=== PATIENT | male | born 1995 | race Caucasian/White ===

== ENCOUNTER 2016-08-20 14:50 | Inpatient (IN) | payer MEDICARE, MEDICAID ==
[2016-08-20] MEDS ORDERED: Sodium Chloride 0.9% 1,000 ML IV ONE (15:46)
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
[2016-08-20 16:07] LABS: % BASOPHILS 0.4 % (0.0-2.0); % EOSINOPHILS 1.8 % (0.0-5.0); % NEUTROPHILS 66.8 % (40.0-80.0); HEMATOCRIT 40.9 % (39.0-49.0); HEMOGLOBIN 13.8 gm/dL (13.2-17.3); MEAN CELL VOLUME 87.8 fl (80-99); MEAN CORPUSCULAR HEMOGLOBIN 29.6 pg (26.0-30.0); MEAN CORPUSCULAR HGB CONC 33.7 pg (28.0-36.0); MEAN PLATELET VOLUME 7.3 fl; NEUTROPHILE ABSOLUTE 6.6 Th/cmm (1.8-8.0); PLATELET COUNT 221 Th/cmm (150-400); RED BLOOD COUNT 4.66 Mil/cmm (4.30-5.70); RED CELL DISTRIBUTION WIDTH 13.6 % (11.5-20.0); WHITE BLOOD COUNT 9.9 Th/cmm (4.8-10.8)
[2016-08-20 16:36] LABS: ANION GAP 11.4 (7.0-16.0); BUN - UREA NITROGEN 13 mg/dL (7-25); BUN/CREATININE RATIO 18.6; CALCIUM SERUM 9.4 mg/dL (8.6-10.3); CARBON DIOXIDE 25.6 mEq/L (21.0-31.0); CHLORIDE 106 mEq/L (98-107); CREATININE - SERUM 0.7 mg/dL (0.7-1.3); GLUCOSE 131 mg/dL (70-105); SODIUM SERUM 139 mEq/L (136-145)
[2016-08-20] MEDS ORDERED: Pneumococcal Vaccine 0.5 mL Vial IM ONE (20:25)
[2016-08-20] MEDS ORDERED: Albuterol Nebulizer 2.5mg/3mL HHN PRN (20:53)
[2016-08-20] MEDS ORDERED: Magnesium Hydroxide (MOM) 30 mL UDC PO PRN (20:53)
[2016-08-20] MEDS ORDERED: LURASIDONE HCL PO SCH (21:00)
[2016-08-20] MEDS: Levofloxacin 500mg/100mL 500 MG/100 ML BAG IV SCH (22:07)
[2016-08-20] MEDS: D5-0.9%NS 1,000 ML IV SCH (22:10)
--- NOTE | 2016-08-21 06:37 | Admit Criteria Form ---
Admit Criteria Forms - Admit Criteria Diagnosis: CELLULITIS Clinical Indications for Admission to Inpatient Care (Place 'X' for any and all applicable criteria): Admission is indicated for ANY ONE of the following(1)(2)(3)(4)(5): [ ]I. Limb-threatening infection [ ]II. High-risk comorbid condition as indicated by ANY ONE of the following: [ ]a) Uncontrolled diabetes (eg, HbA1c greater than 10% (0.1)) [ ]b) Cirrhosis [ ]c) Neutropenia [ ]d) Asplenia [ ]e) Immunosuppression [ ]f) Symptomatic heart failure [ ]III. Failure of outpatient therapy as indicated by ALL of the following: [ ]a) Progression or no improvement after adequate trial (minimum of 48 hours, with longer period for stable lower extremity infection) [ ]b) Adequate antibiotic regimen as indicated by use of ANY ONE of the following: [ ]i) First-generation cephalosporin (e.g., cephalexin) [ ]ii) Antistaphylococcal penicillin (e.g., dicloxacillin) [ ]iii) Penicillin-allergic patient regimen (clindamycin, extended-spectrum fluoroquinolone, or doxycycline) [ ]iv) Resistant organism (eg, methicillin-resistant Staphylococcus aureus) regimen (6) [ ]c) Outpatient intravenous therapy regimen is not appropriate due to ANY ONE of the following. (7)(8)(9)(10): [ ]i) It was tried and was not successful (eg, progression of infection). [ ]ii) It is not available or cannot be arranged in a clinically appropriate time frame (e.g., the next day). [ ]iii) Clinical presentation (eg, acuity of infection, rapidity of progression, confirmed or suspected bacteremia) is judged to require ALL of the following: [ ]1) Immediate initiation of intravenous therapy ( eg, cannot wait for next day) [ ]2) Intensity of patient monitoring and observation (eg, vital sign measurement, checks for infection progression) that cannot be provided at other than inpatient level of care [ ]IV. Mental status changes [ ]V. Bacteremia [ ]. Hemodynamic instability [ ]VII. Suspected necrotizing soft tissue infection (e.g., gas in tissue)(11)( 12) [ ]VIII. Orbital infection (13)(14) [ ]IX. Associated surgical procedure (e.g., abscess drainage, debridement) not amenable to outpatient, emergency department, or observation care [ ]X. Cutaneous gangrene [ ]XI. High fever (temperature greater than 39.5 degrees C (103.1 degrees F) (oral)) not responsive to outpatient, emergency department, or observation care therapy [X ]XIII. Inpatient admission required rather than observation care (Also use Cellulitis: Observation Care as appropriate) because of ANY ONE of the following : [X ]a) Periorbital or perineal infection that is severe or worsening [ ]b) Severe pain requiring acute inpatient management [ ]c) IV fluid to replace significant ongoing (e.g., for over 24 hours) losses (greater than 3L/m2 per day) [ ]d) Compartment syndrome monitoring (17) [ ]e) Strict or protective (eg, laminar flow) isolation [ ]f) Urgent debridement or skin grafting [ ]g) Bone or joint debridement [ ]h) Immediate inpatient surgery [X ]i) Other condition, treatment or monitoring requiring inpatient admission Extended stay beyond goal length of stay may be needed for (1)(18): [ ]a) Necrotizing soft tissue infection or fasciitis [ ]b) Gram-negative infection [ ]c) Methicillin-resistant Staphylococcal aureus (MRSA) infection [ ]d) Peripheral venous insufficiency with cellulitis [ ]e) Extensive edema [ ]f) Sepsis or continued Hemodynamic instability [ ]g) Continued high fever or mental status change [ ]h) Bacteremia [ ]i) Active serious comorbid conditions ( eg, heart failure, renal insufficiency) The original [facility] [employer] content created by [facility] [employer] has been revised. The portions of the content which have been revised are identified through the use of italic text or in bold, and [facility] has neither reviewed nor approved the modified material. All other unmodified content is copyright [facility] Please see references footnoted in the original [facility] edition 2016 Admit Criteria Met?: Yes
[2016-08-21] MEDS: Maalox 30 mL Cup PO SCH ×3 (09:17→17:20)
[2016-08-21] MEDS: Bacitracin Zinc/Polymyxin B Oint 15 gm Tube TP SCH ×2 (09:17→17:19)
[2016-08-21] MEDS ORDERED: VTE Chemical Prophylaxis Screen/Admission MC PRN (11:52)
--- NOTE | 2016-08-21 16:35 | Internal Medicine Prog Note ---
Internal Medicine Subjective - Subjective Service Date: 08/21/16 ([id number] hn ) Internal Medicine Objective - Results Result Diagrams: 08/20/16 15:55 08/20/16 15:55 Recent Labs: Laboratory Last Values WBC 9.9 Th/cmm (4.8-10.8) 08/20/16 15:55 RBC 4.66 Mil/cmm (4.30-5.70) 08/20/16 15:55 Hgb 13.8 gm/dL (13.2-17.3) 08/20/16 15:55 Hct 40.9 % (39.0-49.0) 08/20/16 15:55 MCV 87.8 fl (80-99) 08/20/16 15:55 MCH 29.6 pg (26.0-30.0) 08/20/16 15:55 MCHC Differential 33.7 pg (28.0-36.0) 08/20/16 15:55 RDW 13.6 % (11.5-20.0) 08/20/16 15:55 Plt Count 221 Th/cmm (150-400) 08/20/16 15:55 MPV 7.3 fl 08/20/16 15:55 Neutrophils % 66.8 % (40.0-80.0) 08/20/16 15:55 Lymphocytes % 23.0 % (20.0-50.0) 08/20/16 15:55 Monocytes % 8.0 % (2.0-10.0) 08/20/16 15:55 Eosinophils % 1.8 % (0.0-5.0) 08/20/16 15:55 Basophils % 0.4 % (0.0-2.0) 08/20/16 15:55 Sodium 139 mEq/L (136-145) 08/20/16 15:55 Potassium 4.0 mEq/L (3.5-5.1) 08/20/16 15:55 Chloride 106 mEq/L (98-107) 08/20/16 15:55 Carbon Dioxide 25.6 mEq/L (21.0-31.0) 08/20/16 15:55 Anion Gap 11.4 (7.0-16.0) 08/20/16 15:55 BUN 13 mg/dL (7-25) 08/20/16 15:55 Creatinine 0.7 mg/dL (0.7-1.3) 08/20/16 15:55 Est GFR ( Amer) > 60.0 ml/min (>90) 08/20/16 15:55 Est GFR (Non-Af Amer) > 60.0 ml/min 08/20/16 15:55 BUN/Creatinine Ratio 18.6 08/20/16 15:55 Glucose 131 mg/dL (70-105) H 08/20/16 15:55 Calcium 9.4 mg/dL (8.6-10.3) 08/20/16 15:55 - Physical Exam Vitals and I&O: Vital Signs Temp 98.2 F 08/21/16 12:00 Pulse 80 08/21/16 12:00 Resp 17 08/21/16 12:00 BP 125/66 08/21/16 12:00 Pulse Ox 100 08/21/16 12:00 Intake & Output 08/20/16 08/21/16 08/21/16 18:59 06:59 18:59 Intake Total 250 Balance 250 Intake: Intake, IV Amount 250 Vancomycin HCl 1 gm In 250 Sodium Chloride 0.9% 250 ml @ 165 mls/hr IV 0100, 0900,1700 [facility] Rx#: [id number] Active Medications: Current Medications Acetaminophen (Tylenol) 650 mg PO Q4HR PRN PRN Reason: PAIN (MODERATE TO SEVERE) Stop: 10/19/16 20:52 Al Hydrox/Mg Hydrox/Simethicone (Maalox) 30 ml PO Q4H [facility] Stop: 10/19/16 20:59 Last Admin: 08/21/16 14:19 Dose: Not Given Albuterol Sulfate (Albuterol 2.5mg/3ml Neb Ud) 2.5 mg HHN Q4HR PRN PRN Reason: ASTHMA Stop: 10/19/16 20:52 Bacitracin/Polymyxin B Sulfate (Polysporin) 1 appl TP BID [facility] Stop: 10/20/16 08:59 Last Admin: 08/21/16 09:17 Dose: 1 appl Clindamycin HCl (Cleocin Hcl) 300 mg PO QID [facility] Stop: 10/19/16 20:59 Last Admin: 08/21/16 12:16 Dose: 300 mg Diphenhydramine HCl (Benadryl) 50 mg PO Q6H PRN PRN Reason: Itching Stop: 10/19/16 20:52 Escitalopram Oxalate (Lexapro) 10 mg PO DAILY [facility] PRN Reason: Protocol Stop: 10/20/16 08:59 Last Admin: 08/21/16 15:05 Dose: Not Given Heparin Sodium (Porcine) (Heparin) 5,000 units SUBQ Q12H [facility] Stop: 10/20/16 20:59 Dextrose/Sodium Chloride (D5-0.9%Ns) 1,000 mls @ 100 mls/hr IV .Q10H [facility] Stop: 10/19/16 20:59 Last Admin: 08/20/16 22:10 Dose: 100 mls/hr Levofloxacin (Levaquin Pb) 500 mg in 100 mls @ 100 mls/hr IV Q24HR [facility] Stop: 10/19/16 21:14 Last Admin: 08/20/16 22:07 Dose: 100 mls/hr Vancomycin HCl 1 gm/ Sodium (Chloride) 250 mls @ 165 mls/hr IV 0100,0900,1700 [facility] Stop: 10/20/16 00:59 Last Admin: 08/21/16 09:44 Dose: 165 mls/hr Ibuprofen (Motrin) 800 mg PO Q6HR PRN PRN Reason: Pain (Moderate) Stop: 10/19/16 20:52 Last Admin: 08/21/16 00:00 Dose: 800 mg Lorazepam (Ativan) 1 mg PO Q6H PRN; Protocol PRN Reason: Anxiety Stop: 10/19/16 20:52 Magnesium Hydroxide (Milk Of Magnesia) 30 ml PO DAILY PRN PRN Reason: Constipation Stop: 10/19/16 20:52 Miscellaneous (Vancomycin Iv Per Pharmacy) 1 ea MC PRN [facility] Stop: 10/19/16 20:59 Miscellaneous (Vte Chemical Prophylaxis Screen/ Admission) 1 ea MC PRN PRN PRN Reason: PROTOCOL Stop: 10/20/16 11:51 Ondansetron HCl (Zofran Odt) 4 mg PO Q6H PRN PRN Reason: Nausea / Vomiting Stop: 10/19/16 22:44 Ondansetron HCl (Zofran) 4 mg IV Q8H PRN PRN Reason: Nausea / Vomiting Stop: 10/19/16 20:59 Quetiapine Fumarate (Seroquel) 50 mg PO HS [facility] PRN Reason: Protocol Stop: 10/19/16 20:59 Tramadol HCl (Ultram) 50 mg PO Q6H PRN PRN Reason: Pain (Moderate) Stop: 10/19/16 20:52 Trazodone HCl (Desyrel) 50 mg PO HS PRN; Protocol PRN Reason: Insomnia Stop: 10/19/16 20:52 Internal Medicine Assmt/Plan - Assessment Assessment: PERIORBITAL CELLULITIS SEIZURES HEPATITIS C
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
[2016-08-21] MEDS: Levofloxacin 500mg/100mL 500 MG/100 ML BAG IV SCH (21:39)
--- NOTE | 2016-08-21 22:12 | Consultation ---
The patient was seen, chart reviewed, and discussed with staff. HISTORY OF PRESENT ILLNESS: The patient is a 21-year-old male with history of depression, possible bipolar disorder, known to myself from treatment at [facility]. He developed cellulitis over the face. He was transferred to medical floor now. He is receiving IV antibiotic treatment. The patient is still feeling depressed, anxious, and continues to have some episodes where he has hopelessness and thoughts of harming himself, but he feels comfortable now on medical floor. He has been accepting treatment on the voluntary basis. PAST PSYCHIATRIC HISTORY: Prior hospitalizations and history of depression and anxiety. PSYCHOSOCIAL HISTORY: The patient is currently homeless. SUBSTANCE ABUSE HISTORY: The patient has a history of substance abuse in the past. MENTAL STATUS EXAMINATION: The patient was cooperative, makes fair eye contact. Speech is fluent, not pressured. His thought process is logical in general. He occasionally becomes tangential, slightly guarded, but no other visual hallucinations. He is oriented to time, place, and person. ASSESSMENT: Bipolar disorder, depressed. PLAN: We will continue supportive measure, continue to monitor closely. Continue medication management. The patient will be transferred back to [facility] once medically cleared. Thank you for the consultation. JOB# [id number]
[2016-08-22] MEDS: Bacitracin Zinc/Polymyxin B Oint 15 gm Tube TP SCH ×2 (08:43→16:22)
[2016-08-22] MEDS: Maalox 30 mL Cup PO SCH ×4 (08:43→20:53)
--- NOTE | 2016-08-22 09:10 | Diagnostic Imaging Report ---
CT scan of the brain without contrast History: Headache Total DLP equals 562 CTDI equals 33.6 Axial sections were obtained from the base of the skull to the vertex. Mild asymmetric increased density with soft tissue swelling noted in the right perinasal/periorbital region. There is a normal ventricular system size. No focal parenchymal lesions are seen. No evidence of any mass effect or shift of midline structures. No extra-axial masses or abnormal fluid collections. Impression: 1. No acute intracerebral abnormalities 2. Suggestion of mild soft tissue swelling within the right paranasal/periorbital region.
--- NOTE | 2016-08-22 09:12 | Diagnostic Imaging Report ---
CT scan sinuses HISTORY: Pain Total DLP equals 112 CTDI equals 8.3 Axial sections were obtained through the paranasal sinuses. Additional coronal and sagittal reformatted images are provided. The exam demonstrates mild mucosal thickening within the lower portion of the right maxillary sinus. Retention of normal bony margins. The left maxillary sinus exhibits normal aeration with no abnormal soft tissue densities or fluid levels. The ostiomeatal complex units appear normal bilaterally. There is normal aeration of the ethmoid, frontal, sphenoid sinuses. Nasal turbinates appear normal. There is protrusion of an upper tooth into the lower lumen of the right maxillary sinus. Mild protrusion of an upper tooth noted into the lower portion of the left maxillary sinus. IMPRESSION: 1. Mild mucosal thickening within the right maxillary sinus 2. Protrusion upper teeth into the right and to a lesser degree left maxillary sinus regions.
--- NOTE | 2016-08-22 09:30 | Internal Medicine Prog Note ---
Internal Medicine Subjective - Subjective Service Date: 08/22/16 (patient awake, alert, very agitated, assessed patients right eye and asked him to cover left eye, i held up blue gloves and asked what color it was patient was able distinguish the colors.) Patient seen and examined:: with staff Patient is:: awake Per staff patient is:: no adverse event Internal Medicine Objective - Results Result Diagrams: 08/20/16 15:55 08/20/16 15:55 Recent Labs: Laboratory Last Values WBC 9.9 Th/cmm (4.8-10.8) 08/20/16 15:55 RBC 4.66 Mil/cmm (4.30-5.70) 08/20/16 15:55 Hgb 13.8 gm/dL (13.2-17.3) 08/20/16 15:55 Hct 40.9 % (39.0-49.0) 08/20/16 15:55 MCV 87.8 fl (80-99) 08/20/16 15:55 MCH 29.6 pg (26.0-30.0) 08/20/16 15:55 MCHC Differential 33.7 pg (28.0-36.0) 08/20/16 15:55 RDW 13.6 % (11.5-20.0) 08/20/16 15:55 Plt Count 221 Th/cmm (150-400) 08/20/16 15:55 MPV 7.3 fl 08/20/16 15:55 Neutrophils % 66.8 % (40.0-80.0) 08/20/16 15:55 Lymphocytes % 23.0 % (20.0-50.0) 08/20/16 15:55 Monocytes % 8.0 % (2.0-10.0) 08/20/16 15:55 Eosinophils % 1.8 % (0.0-5.0) 08/20/16 15:55 Basophils % 0.4 % (0.0-2.0) 08/20/16 15:55 Sodium 139 mEq/L (136-145) 08/20/16 15:55 Potassium 4.0 mEq/L (3.5-5.1) 08/20/16 15:55 Chloride 106 mEq/L (98-107) 08/20/16 15:55 Carbon Dioxide 25.6 mEq/L (21.0-31.0) 08/20/16 15:55 Anion Gap 11.4 (7.0-16.0) 08/20/16 15:55 BUN 13 mg/dL (7-25) 08/20/16 15:55 Creatinine 0.7 mg/dL (0.7-1.3) 08/20/16 15:55 Est GFR ( Amer) > 60.0 ml/min (>90) 08/20/16 15:55 Est GFR (Non-Af Amer) > 60.0 ml/min 08/20/16 15:55 BUN/Creatinine Ratio 18.6 08/20/16 15:55 Glucose 131 mg/dL (70-105) H 08/20/16 15:55 Calcium 9.4 mg/dL (8.6-10.3) 08/20/16 15:55 - Physical Exam Vitals and I&O: Vital Signs Temp 98.6 F 08/22/16 08:27 Pulse 53 08/22/16 08:27 Resp 18 08/22/16 08:27 BP 115/69 08/22/16 08:27 Pulse Ox 97 08/22/16 08:27 Intake & Output 08/21/16 08/22/16 08/22/16 18:59 06:59 18:59 Intake Total 500 320 Balance 500 320 Intake: Intake, IV Amount 500 Vancomycin HCl 1 gm In 500 Sodium Chloride 0.9% 250 ml @ 165 mls/hr IV 0100, 0900,1700 [facility] Rx#: [id number] Oral 320 Other: # Voids 2 # Bowel Movements 0 Active Medications: Current Medications Acetaminophen (Tylenol) 650 mg PO Q4HR PRN PRN Reason: PAIN (MODERATE TO SEVERE) Stop: 10/19/16 20:52 Al Hydrox/Mg Hydrox/Simethicone (Maalox) 30 ml PO Q4H [facility] Stop: 10/19/16 20:59 Last Admin: 08/22/16 08:43 Dose: Not Given Albuterol Sulfate (Albuterol 2.5mg/3ml Neb Ud) 2.5 mg HHN Q4HR PRN PRN Reason: ASTHMA Stop: 10/19/16 20:52 Bacitracin/Polymyxin B Sulfate (Polysporin) 1 appl TP BID [facility] Stop: 10/20/16 08:59 Last Admin: 08/22/16 08:43 Dose: 1 appl Clindamycin HCl (Cleocin Hcl) 300 mg PO QID [facility] Stop: 10/19/16 20:59 Last Admin: 08/22/16 08:35 Dose: 300 mg Diphenhydramine HCl (Benadryl) 50 mg PO Q6H PRN PRN Reason: Itching Stop: 10/19/16 20:52 Escitalopram Oxalate (Lexapro) 10 mg PO DAILY [facility] PRN Reason: Protocol Stop: 10/20/16 08:59 Last Admin: 08/22/16 08:36 Dose: Not Given Heparin Sodium (Porcine) (Heparin) 5,000 units SUBQ Q12H [facility] Stop: 10/20/16 20:59 Last Admin: 08/22/16 08:35 Dose: 5,000 units Dextrose/Sodium Chloride (D5-0.9%Ns) 1,000 mls @ 100 mls/hr IV .Q10H [facility] Stop: 10/19/16 20:59 Last Admin: 08/20/16 22:10 Dose: 100 mls/hr Levofloxacin (Levaquin Pb) 500 mg in 100 mls @ 100 mls/hr IV Q24HR [facility] Stop: 10/19/16 21:14 Last Admin: 08/21/16 21:39 Dose: 100 mls/hr Vancomycin HCl 1 gm/ Sodium (Chloride) 250 mls @ 165 mls/hr IV 0100,0900,1700 [facility] Stop: 10/20/16 00:59 Last Admin: 08/22/16 02:04 Dose: 165 mls/hr Ibuprofen (Motrin) 800 mg PO Q6HR PRN PRN Reason: Pain (Moderate) Stop: 10/19/16 20:52 Last Admin: 08/21/16 23:14 Dose: 800 mg Lorazepam (Ativan) 1 mg PO Q6H PRN; Protocol PRN Reason: Anxiety Stop: 10/19/16 20:52 Magnesium Hydroxide (Milk Of Magnesia) 30 ml PO DAILY PRN PRN Reason: Constipation Stop: 10/19/16 20:52 Miscellaneous (Vancomycin Iv Per Pharmacy) 1 ea MC PRN [facility] Stop: 10/19/16 20:59 Miscellaneous (Vte Chemical Prophylaxis Screen/ Admission) 1 ea MC PRN PRN PRN Reason: PROTOCOL Stop: 10/20/16 11:51 Ondansetron HCl (Zofran Odt) 4 mg PO Q6H PRN PRN Reason: Nausea / Vomiting Stop: 10/19/16 22:44 Ondansetron HCl (Zofran) 4 mg IV Q8H PRN PRN Reason: Nausea / Vomiting Stop: 10/19/16 20:59 Quetiapine Fumarate (Seroquel) 50 mg PO HS [facility] PRN Reason: Protocol Stop: 10/19/16 20:59 Last Admin: 08/21/16 21:15 Dose: 50 mg Tramadol HCl (Ultram) 50 mg PO Q6H PRN PRN Reason: Pain (Moderate) Stop: 10/19/16 20:52 Trazodone HCl (Desyrel) 50 mg PO HS PRN; Protocol PRN Reason: Insomnia Stop: 10/19/16 20:52 General: alert HEENT: NC/AT, PERRLA Neck: Supple Lungs: CTAB Cardiovascular: RRR, Normal S1, Normal S2, without murmur Abdomen: soft non-tender, non-distended Extremities: clear Internal Medicine Assmt/Plan - Assessment Assessment: PERIORBITAL CELLULITIS SEIZURES HEPATITIS C - Plan Plan: continue iv antibiotics neuro consult f/u labs cpm
[2016-08-22 09:56] LABS: % BASOPHILS 0.5 % (0.0-2.0); % EOSINOPHILS 2.7 % (0.0-5.0); % LYMPHOCYTES 39.3 % (20.0-50.0); % MONOCYTES 6.4 % (2.0-10.0); % NEUTROPHILS 51.1 % (40.0-80.0); HEMATOCRIT 44.2 % (39.0-49.0); HEMOGLOBIN 14.5 gm/dL (13.2-17.3); MEAN CELL VOLUME 89.2 fl (80-99); MEAN CORPUSCULAR HEMOGLOBIN 29.3 pg (26.0-30.0); MEAN CORPUSCULAR HGB CONC 32.9 pg (28.0-36.0); MEAN PLATELET VOLUME 7.1 fl; NEUTROPHILE ABSOLUTE 2.1 Th/cmm (1.8-8.0); PLATELET COUNT 218 Th/cmm (150-400); RED BLOOD COUNT 4.95 Mil/cmm (4.30-5.70); RED CELL DISTRIBUTION WIDTH 13.6 % (11.5-20.0)
[2016-08-22 10:04] LABS: WHITE BLOOD COUNT 4.1 Th/cmm (4.8-10.8)
[2016-08-22 10:30] LABS: ALB/GLOB RATIO 1.5 (1.0-1.8); ALKALINE PHOSPHATASE 54 U/L (34-104); ANION GAP 7.8 (7.0-16.0); BILIRUBIN,TOTAL 0.3 mg/dL (0.3-1.0); BUN - UREA NITROGEN 12 mg/dL (7-25); CALCIUM SERUM 9.7 mg/dL (8.6-10.3); CARBON DIOXIDE 28.1 mEq/L (21.0-31.0); CHLORIDE 104 mEq/L (98-107); CREATININE - SERUM 0.8 mg/dL (0.7-1.3); GLUCOSE 99 mg/dL (70-105); POTASSIUM SERUM 3.9 mEq/L (3.5-5.1); SGOT 16 U/L (13-39); SGPT/ALT 15 U/L (7-52); SODIUM SERUM 136 mEq/L (136-145)
[2016-08-22] MEDS: D5-0.9%NS 1,000 ML IV SCH (13:42)
[2016-08-23] MEDS: Maalox 30 mL Cup PO SCH ×6 (00:44→21:19)
[2016-08-23] MEDS: Bacitracin Zinc/Polymyxin B Oint 15 gm Tube TP SCH ×2 (08:49→16:21)
[2016-08-23 10:46] LABS: % BASOPHILS 0.3 % (0.0-2.0); % EOSINOPHILS 2.3 % (0.0-5.0); % MONOCYTES 7.9 % (2.0-10.0); % NEUTROPHILS 46.5 % (40.0-80.0); HEMATOCRIT 43.7 % (39.0-49.0); HEMOGLOBIN 14.6 gm/dL (13.2-17.3); MEAN CELL VOLUME 87.5 fl (80-99); MEAN CORPUSCULAR HEMOGLOBIN 29.3 pg (26.0-30.0); MEAN CORPUSCULAR HGB CONC 33.5 pg (28.0-36.0); NEUTROPHILE ABSOLUTE 2.2 Th/cmm (1.8-8.0); PLATELET COUNT 256 Th/cmm (150-400); RED BLOOD COUNT 4.99 Mil/cmm (4.30-5.70); RED CELL DISTRIBUTION WIDTH 13.5 % (11.5-20.0); WHITE BLOOD COUNT 4.8 Th/cmm (4.8-10.8)
[2016-08-23 10:59] LABS: ANION GAP 5.5 (7.0-16.0); BUN - UREA NITROGEN 15 mg/dL (7-25); BUN/CREATININE RATIO 21.4; CALCIUM SERUM 9.5 mg/dL (8.6-10.3); CARBON DIOXIDE 29.9 mEq/L (21.0-31.0); CHLORIDE 106 mEq/L (98-107); CREATININE - SERUM 0.7 mg/dL (0.7-1.3); GLUCOSE 95 mg/dL (70-105); POTASSIUM SERUM 4.4 mEq/L (3.5-5.1); SODIUM SERUM 137 mEq/L (136-145)
--- NOTE | 2016-08-23 14:23 | Internal Medicine Prog Note ---
Internal Medicine Subjective - Subjective Service Date: 08/23/16 Patient seen and examined:: with staff Patient is:: awake Per staff patient is:: no adverse event Internal Medicine Objective - Results Result Diagrams: 08/23/16 10:30 08/23/16 10:30 Recent Labs: Laboratory Last Values WBC 4.8 Th/cmm (4.8-10.8) 08/23/16 10:30 RBC 4.99 Mil/cmm (4.30-5.70) 08/23/16 10:30 Hgb 14.6 gm/dL (13.2-17.3) 08/23/16 10:30 Hct 43.7 % (39.0-49.0) 08/23/16 10:30 MCV 87.5 fl (80-99) 08/23/16 10:30 MCH 29.3 pg (26.0-30.0) 08/23/16 10:30 MCHC Differential 33.5 pg (28.0-36.0) 08/23/16 10:30 RDW 13.5 % (11.5-20.0) 08/23/16 10:30 Plt Count 256 Th/cmm (150-400) 08/23/16 10:30 MPV 7.0 fl 08/23/16 10:30 Neutrophils % 46.5 % (40.0-80.0) 08/23/16 10:30 Lymphocytes % 43.0 % (20.0-50.0) 08/23/16 10:30 Monocytes % 7.9 % (2.0-10.0) 08/23/16 10:30 Eosinophils % 2.3 % (0.0-5.0) 08/23/16 10:30 Basophils % 0.3 % (0.0-2.0) 08/23/16 10:30 ESR 7 mm/hr (0-20) 08/22/16 09:45 Sodium 137 mEq/L (136-145) 08/23/16 10:30 Potassium 4.4 mEq/L (3.5-5.1) 08/23/16 10:30 Chloride 106 mEq/L (98-107) 08/23/16 10:30 Carbon Dioxide 29.9 mEq/L (21.0-31.0) 08/23/16 10:30 Anion Gap 5.5 (7.0-16.0) L 08/23/16 10:30 BUN 15 mg/dL (7-25) 08/23/16 10:30 Creatinine 0.7 mg/dL (0.7-1.3) 08/23/16 10:30 Est GFR ( Amer) > 60.0 ml/min (>90) 08/23/16 10:30 Est GFR (Non-Af Amer) > 60.0 ml/min 08/23/16 10:30 BUN/Creatinine Ratio 21.4 08/23/16 10:30 Glucose 95 mg/dL (70-105) 08/23/16 10:30 Calcium 9.5 mg/dL (8.6-10.3) 08/23/16 10:30 Total Bilirubin 0.3 mg/dL (0.3-1.0) 08/22/16 09:45 AST 16 U/L (13-39) 08/22/16 09:45 ALT 15 U/L (7-52) 08/22/16 09:45 Alkaline Phosphatase 54 U/L (34-104) 08/22/16 09:45 C-Reactive Protein 1.0 mg/dL (0.0-0.9) H 08/22/16 09:45 Total Protein 6.4 gm/dL (6.0-8.3) 08/22/16 09:45 Albumin 3.8 gm/dL (4.2-5.5) L 08/22/16 09:45 Globulin 2.6 gm/dL 08/22/16 09:45 Albumin/Globulin Ratio 1.5 (1.0-1.8) 08/22/16 09:45 Vancomycin Trough 14.4 ug/mL (10-20) 08/22/16 09:45 - Physical Exam Vitals and I&O: Vital Signs Temp 98 F 08/23/16 12:09 Pulse 54 08/23/16 12:09 Resp 18 08/23/16 12:09 BP 102/48 08/23/16 12:09 Pulse Ox 99 08/23/16 12:09 Intake & Output 08/22/16 08/23/16 08/23/16 18:59 06:59 18:59 Intake Total 250 1220 Balance 250 1220 Intake: Intake, IV Amount 250 500 Vancomycin HCl 1 gm In 250 500 Sodium Chloride 0.9% 250 ml @ 165 mls/hr IV Q8H [facility] Rx#:[id number] Oral 720 Other: # Voids 3 2 # Bowel Movements 0 Active Medications: Current Medications Acetaminophen (Tylenol) 650 mg PO Q4HR PRN PRN Reason: PAIN (MODERATE TO SEVERE) Stop: 10/19/16 20:52 Al Hydrox/Mg Hydrox/Simethicone (Maalox) 30 ml PO Q4H [facility] Stop: 10/19/16 20:59 Last Admin: 08/23/16 12:20 Dose: 30 ml Albuterol Sulfate (Albuterol 2.5mg/3ml Neb Ud) 2.5 mg HHN Q4HR PRN PRN Reason: ASTHMA Stop: 10/19/16 20:52 Bacitracin/Polymyxin B Sulfate (Polysporin) 1 appl TP BID [facility] Stop: 10/20/16 08:59 Last Admin: 08/23/16 08:49 Dose: 1 appl Diphenhydramine HCl (Benadryl) 50 mg PO Q6H PRN PRN Reason: Itching Stop: 10/19/16 20:52 Escitalopram Oxalate (Lexapro) 10 mg PO DAILY [place] PRN Reason: Protocol Stop: 10/20/16 08:59 Last Admin: 08/23/16 08:49 Dose: Not Given Heparin Sodium (Porcine) (Heparin) 5,000 units SUBQ Q12H [facility] Stop: 10/20/16 20:59 Last Admin: 08/23/16 08:49 Dose: Not Given Vancomycin HCl 1 gm/ Sodium (Chloride) 250 mls @ 165 mls/hr IV Q8H [facility] Stop: 10/21/16 11:59 Last Admin: 08/23/16 11:24 Dose: 165 mls/hr Ibuprofen (Motrin) 800 mg PO Q6HR PRN PRN Reason: Pain (Moderate) Stop: 10/19/16 20:52 Last Admin: 08/23/16 09:18 Dose: 800 mg Lorazepam (Ativan) 1 mg PO Q6H PRN; Protocol PRN Reason: Anxiety Stop: 10/19/16 20:52 Magnesium Hydroxide (Milk Of Magnesia) 30 ml PO DAILY PRN PRN Reason: Constipation Stop: 10/19/16 20:52 Miscellaneous (Vancomycin Iv Per Pharmacy) 1 ea [facility] PRN [facility] Stop: 10/19/16 20:59 Miscellaneous (Vte [employer] Prophylaxis Screen/ Admission) 1 ea [facility] PRN PRN PRN Reason: PROTOCOL Stop: 10/20/16 11:51 Ondansetron HCl (Zofran Odt) 4 mg PO Q6H PRN PRN Reason: Nausea / Vomiting Stop: 10/19/16 22:44 Ondansetron HCl (Zofran) 4 mg IV Q8H PRN PRN Reason: Nausea / Vomiting Stop: 10/19/16 20:59 Quetiapine Fumarate (Seroquel) 50 mg PO HS [place] PRN Reason: Protocol Stop: 10/19/16 20:59 Last Admin: 08/22/16 20:53 Dose: 50 mg Tramadol HCl (Ultram) 50 mg PO Q6H PRN PRN Reason: Pain (Moderate) Stop: 10/19/16 20:52 Last Admin: 08/22/16 20:53 Dose: 50 mg Trazodone HCl (Desyrel) 50 mg PO HS PRN; Protocol PRN Reason: Insomnia Stop: 10/19/16 20:52 General: alert HEENT: NC/AT, PERRLA Neck: Supple Lungs: CTAB Cardiovascular: RRR, Normal S1, Normal S2, without murmur Abdomen: soft non-tender, non-distended Extremities: clear Internal Medicine Assmt/Plan - Assessment Assessment: PERIORBITAL CELLULITIS SEIZURES HEPATITIS C - Plan Plan: continue iv antibiotics neuro to see patient psych follow up dc planning once cleared by consultants f/u labs cpm
[2016-08-24] MEDS: Maalox 30 mL Cup PO SCH ×4 (01:57→12:51)
[2016-08-24] MEDS: Bacitracin Zinc/Polymyxin B Oint 15 gm Tube TP SCH (09:13)
[2016-08-24 11:42] LABS: % EOSINOPHILS 1.7 % (0.0-5.0); % LYMPHOCYTES 37.6 % (20.0-50.0); % NEUTROPHILS 55.7 % (40.0-80.0); HEMATOCRIT 44.2 % (39.0-49.0); HEMOGLOBIN 14.6 gm/dL (13.2-17.3); MEAN CELL VOLUME 88.5 fl (80-99); MEAN CORPUSCULAR HEMOGLOBIN 29.2 pg (26.0-30.0); MEAN PLATELET VOLUME 7.4 fl; PLATELET COUNT 238 Th/cmm (150-400); RED CELL DISTRIBUTION WIDTH 13.4 % (11.5-20.0); WHITE BLOOD COUNT 5.5 Th/cmm (4.8-10.8)
[2016-08-24 12:02] LABS: ANION GAP 2.7 (7.0-16.0); BUN - UREA NITROGEN 14 mg/dL (7-25); BUN/CREATININE RATIO 17.5; CALCIUM SERUM 9.6 mg/dL (8.6-10.3); CARBON DIOXIDE 29.3 mEq/L (21.0-31.0); CHLORIDE 108 mEq/L (98-107); CREATININE - SERUM 0.8 mg/dL (0.7-1.3); GLUCOSE 90 mg/dL (70-105); SODIUM SERUM 136 mEq/L (136-145)
--- NOTE | 2016-11-01 23:33 | Discharge Summary ---
DATE OF DISCHARGE: 08/24/2016 CHIEF COMPLAINT: Facial redness and swelling. FINAL DIAGNOSES: Periorbital cellulitis, seizure, hepatitis. HISTORY: This is a 21-year-old male with history of bilateral eye swelling. The patient was seen initially at [facility] [place] and not responding to topical and oral antibiotic, the patient transferred for further care and treatment. PHYSICAL EXAMINATION: VITAL SIGNS: Blood pressure 112/76, respirations 18, pulse 80, temperature 98.3. GENERAL: A young male in no acute distress. NECK: Supple. No mass. HEENT: Decreased redness on the bilateral orbits. HEART: Regular rate and rhythm without appreciable murmurs. ABDOMEN: Soft, nontender. EXTREMITIES: Positive excoriation. HOSPITAL COURSE: The patient was admitted to medical floor, continued on IV hydration and IV antibiotic, initially on vancomycin and Levaquin. The patient ____ has improved. The patient was also seen by psychiatry by Dr. Phillips and Dr. Carr. The patient cleared for discharge. CONDITION ON DISCHARGE: Fair. DISCHARGE INSTRUCTIONS: The patient to continue current medical regimen with p.o. antibiotic. The patient to follow with ____ upon discharge. JOB# [id number]
== END 2016-08-24 16:30 | DRG 603 ==
LOC: ER 14:50 → MSI 18:52
PROVIDERS: ADMIT Internal Medicine; ATTEND Internal Medicine
DX: L03.213 Periorbital cellulitis (principal); F32.9 Major depressive disorder, single episode, unspecified; B19.20 Unspecified viral hepatitis C without hepatic coma; G40.909 Epilepsy, unspecified, not intractable, without status epilepticus; J45.909 Unspecified asthma, uncomplicated; F17.210 Nicotine dependence, cigarettes, uncomplicated; F12.929 Cannabis use, unspecified with intoxication, unspecified; J44.9 Chronic obstructive pulmonary disease, unspecified
CPT/HCPCS: 36415-UA; 70450-TC; 70486-TC; 80048-TC; 80053-TC; 80202-TC; 85025-TC; 85652-TC; 86141-TC; 87070-90; 94760; J1644; J1956; J3370; J7030; J7042; Z7610